=== PATIENT | female | born 1935 | race Caucasian/White ===

== ENCOUNTER → 2018-07-26 | Outpatient (CLI) | payer MEDICARE, BC ==
--- NOTE | 2018-07-26 09:39 | US ---
EXAMINATION TYPE: US abdomen limited DATE OF EXAM: 07/26/2018 COMPARISON: US 2010, CT 2013 CLINICAL HISTORY: R10.9 Abdominal pain,dyspepsia K30. EXAM MEASUREMENTS: Liver Length: 12.7 cm Gallbladder Wall: 0.1 cm CBD: 0.3 cm Right Kidney: 9.8 x 4.5 x 4.0 cm Pancreas: Tail obscured by overlying bowel gas Liver: wnl, Echogenic, shadowing focus near diaphragm as seen on previous CT = 1.2 x 1.1 x 0.6 cm -- correlates with dystrophic calcification. Gallbladder: wnl Evidence for sonographic Jack's sign: No CBD: wnl Right Kidney: wnl IMPRESSION: No shadowing mobile gallstones or ultrasound evidence for acute cholecystitis.
--- NOTE | 2018-07-26 14:26 | XR ---
"EXAMINATION TYPE: XR chest 2V DATE OF EXAM: 07/26/2018 COMPARISON: Prior chest x-ray 04/29/2011 HISTORY: Abdominal pain, dyspepsia TECHNIQUE: Frontal and lateral views of the chest are obtained. FINDINGS: There is no pleural effusion or pneumothorax seen. Biapical pleural thickening is present . There is a focus of increased density between the posterior left seventh and eighth ribs not seen o n prior exam. The cardiac silhouette size is stable, enlarged. The aorta is dense. The osseous struc tures are intact. IMPRESSION: Question nodule in the left mid lung as described. Stable cardiomegaly. Apical pleural t hickening again noted. Consider short interval follow-up, chest CT A Yellow level critical message alert has been initiated for Mari Phan DO via the [employer] 60 | Critical Results System on 07/26/2018 2:24 PM. This message alert has been sent to Mari padilla DO via the preferences provided by the clinician for the receipt of Radiology Critical FindingsHelena Egan essage ID [id number]."
--- NOTE | 2018-07-26 14:32 | XR ---
Thoracic spine HISTORY: Remote history of trauma, irregular heartbeat, abdominal pain and dyspepsia 3 views of the thoracic spine Thoracic vertebral bodies show preserved height and alignment. Bone mineralization is reduced. There is multilevel spondylosis. Disc spaces maintained. Mild spinal curvature is noted. There are calcific ations seen at the level of the right hemidiaphragm which are indeterminate. Degenerative disc change s noted in the cervical spine. IMPRESSION: No fracture or subluxation. Osteopenia. Thoracic spondylosis.
--- NOTE | 2018-07-26 14:35 | XR ---
Lumbar spine HISTORY: Abdominal pain, dyspepsia, irregular heartbeat, history of remote trauma 5 views of the lumbosacral spine Calcification in the left upper quadrant may be related to splenic artery. Lumbar vertebral bodies sh ow preserved alignment. Bone mineralization is reduced. There is no evident spondylolysis. Multilevel spondylosis is present. There is loss of height of superior endplate of L2 partially 25%, no evident retropulsion. Loss of disc height present at intervertebral levels. Sclerosis present in the posteri or elements compatible with facet arthropathy. There are vascular calcifications. IMPRESSION: Probable osteoporotic compression deformity superior endplate L2 indeterminate age, degen erative disc disease and facet arthropathy. Additional findings above.
== END | disposition home or self-care (01) ==
LOC: RADUSWWP 08:57
PROVIDERS: ATTEND Family Medicine
DX: I51.7 Cardiomegaly (principal); R91.8 Other nonspecific abnormal finding of lung field; R10.13 Epigastric pain; M47.814 Spondylosis without myelopathy or radiculopathy, thoracic region; M85.88 Other specified disorders of bone density and structure, other site; M51.36 Other intervertebral disc degeneration, lumbar region; M46.86 Other specified inflammatory spondylopathies, lumbar region
CPT/HCPCS: 71046; 72072; 72110; 76705

== ENCOUNTER → 2018-08-07 | Outpatient (CLI) | payer BC, MEDICARE ==
--- NOTE | 2018-08-07 14:19 | CT ---
EXAMINATION TYPE: CT chest wo/w con DATE OF EXAM: 08/07/2018 COMPARISON: Chest x-ray July 26, 2018 HISTORY: left lung nodule, abnormal chest x-ray. CT DLP: 351.2 mGycm. Automated Exposure Control for Dose Reduction was Utilized. TECHNIQUE: CT scan of the thorax is performed following without and with IV Contrast, patient inject ed with 80mL mL of Isovue 300. FINDINGS: LUNGS: Correlating with area of chest x-ray concern there is nodular opacity or spiculated groundglas s nodule measuring 15 x 8 mm axial image 31 series 4 and image 34 series 8 without suspicious enhance ment only measuring 3 to 4 mm in thickness coronal image 29 series 12. I favor postinflammatory scar. There is additional groundglass opacity with some areas of consolidation in the medial left lower lo be. There is additional just over 6 mm nodule lateral left lung base axial image 47 series 4 and smal ler 6 x 4 mm nodule superior to this lateral left lower lobe axial image 38 series 4. There is modera te biapical pleural/parenchymal scarring extending posteriorly. Dependent atelectasis right lung base is present. No pleural effusion or pneumothorax is seen bilaterally. Tracheobronchial tree is patent . MEDIASTINUM: There are no greater than 1 cm hilar or mediastinal lymph nodes. A few prominent but s ubcentimeter thoracic lymph nodes are seen for reference is 7 x 6 mm prevascular lymph node axial jon ge 30 No pericardial effusion is seen. Heart size is upper limits of normal. There is mild calcified plaque of visualized aorta. OTHER: Small hiatal hernia is present. There is mild to moderate multilevel spurring in the thoracic spine. There is single calcification in the hepatic dome axial image 49. IMPRESSION: Findings as detailed above with left lung nodules measuring up to 6 mm in size and 15 by 8mm scarlike opacity corresponding to area of x-ray abnormality. Favor postinflammatory etiology. Adv ise CT follow-up in 3-6 months time to reassess.
== END | disposition home or self-care (01) ==
LOC: RADCTMAIN 12:24
PROVIDERS: ATTEND Family Medicine
DX: R91.8 Other nonspecific abnormal finding of lung field (principal)
CPT/HCPCS: 82565; 84520; 71270; 36415; Q9967

== ENCOUNTER → 2018-08-28 | Outpatient (CLI) | payer MEDICARE, BC ==
[2018-08-28 16:21] LABS: Iron Saturation 20.96 (12.00-45.00)
[2018-08-28 16:42] LABS: Folate, Serum 9.9 ng/mL
[2018-08-28 21:24] LABS: Hemoglobin A1C 5.7 % (4.0-6.0)
== END ==
LOC: LABWHC1 08:59
PROVIDERS: ATTEND Family Medicine
DX: E87.1 Hypo-osmolality and hyponatremia (principal); R73.9 Hyperglycemia, unspecified; K90.9 Intestinal malabsorption, unspecified; D53.9 Nutritional anemia, unspecified; E61.1 Iron deficiency
CPT/HCPCS: 36415; 82607; 82728; 82746; 83036; 83540; 83550

== ENCOUNTER 2019-04-25 07:47 | Emergency (ER) | payer MEDICARE, BC ==
[2019-04-25] MEDS ORDERED: PANTOPRAZOLE 40 MG/10 ML VIAL IVP STA (08:15)
[2019-04-25] MEDS ORDERED: SODIUM CHLORIDE 0.9% 1,000 ML IV STA (08:15)
--- NOTE | 2019-04-25 08:19 | ED ---
General Adult HPI - General Chief complaint: GI Bleed Stated complaint: Diarrhea Time Seen by Provider: 04/25/19 07:54 Source: patient Mode of arrival: wheelchair Limitations: no limitations - History of Present Illness Initial comments: Dictation was produced using [employer] dictation software. please excuse any grammatical, word or spelling errors. Chief Complaint: 84-year-old female presents with 2 days of GI bleed and left lower quadrant abdominal pain. History of Present Illness: Patient is 84-year-old female she has past medical history of atrial fibrillation and diverticulitis. She presents with 2-3 days of GI bleed. She states 20 her stool has been red and runny. The day after she's been having black coffee-ground stool. Patient states she has mild discomfort to her left lower quadrant. Patient is remote history of diverticulitis. She states her symptoms are different today. Denies any hematuria or dark urine. Patient has not been eating over the last 2-3 days. Patient denies any nausea vomiting. Denies any constitutional symptoms. Patient denies any rectal pain. Denies any recent hospitalizations. No recent antibiotics. No exposure to people with similar symptoms. No recent camping or traveling. The ROS documented in this emergency department record has been reviewed and confirmed by me. Those systems with pertinent positive or negative responses have been documented in the HPI. All other systems are other negative and/or noncontributory. PHYSICAL EXAM: General Impression: Alert and oriented x3, not in acute distress HEENT: Normocephalic atraumatic, extra-ocular movements intact, pupils equal and reactive to light bilaterally, mucous membranes moist. Cardiovascular: Heart regular rate and rhythm, S1&S2 audible, no murmurs, rubs or gallops Chest: Lungs clear to auscultation bilaterally, no rhonchi, no wheeze, no rales Abdomen: Tenderness to palpation of left lower quadrant Musculoskeletal: Pulses present and equal in all extremities, no peripheral edema Motor: no focal deficits noted Neurological: CN II-XII grossly intact, no focal motor or sensory deficits noted Skin: Intact with no visualized rashes Psych: Normal affect and mood Rectal exam: Shows 2 anal polyps at the 4 and 7 o'clock position. No palpable mass in the rectal vault ED course: 84-year-old female presents with GI bleed and left lower quadrant abdominal pain for the last 2 days. Upon arrival are within acceptable limits. Laboratory evaluation obtained. CBC, coag panel, metabolic panel was obtained. Patient has mild non-gap acidosis likely secondary to fluid water loss. Patient still of blood is negative. CT abdomen and pelvis with contrast was obtained. There is findings of mild acute diverticulitis at the left lower quadrant. No acute processes seen. No free air or peritoneal air, no signs of abscess. Patient tolerating by mouth at bedside. Patient given 1 dose of Levaquin, Flagyl loperamide. Patient given prescriptions for these medications. She is advised to follow-up with PCP. Return parameters discussed patient patient understands that she should return to the emergency department with worsening pain, constitutional symptoms or by mouth intolerance. Patient otherwise clear for discharge. She is understandable and agreeable to disposition. - Related Data Home Medications Medication Instructions Recorded Confirmed Cetirizine HCl [Zyrtec] 10 mg PO DAILY PRN 04/25/19 04/25/19 Cholecalciferol [Vitamin D3 (25 1,000 unit PO DAILY 04/25/19 04/25/19 Mcg = 1000 Iu)] Clopidogrel [Plavix] 37.5 mg PO Q48H 04/25/19 04/25/19 Cyanocobalamin (Vitamin B-12) 1,000 mcg PO DAILY 04/25/19 04/25/19 [Vitamin B-12] Pseudoephedrine [Sudafed] 30 mg PO Q4H PRN 04/25/19 04/25/19 amLODIPine [Norvasc] 5 mg PO DAILY 04/25/19 04/25/19 Previous Rx's Medication Instructions Recorded Levofloxacin [Levaquin] 750 mg PO DAILY 9 Days #9 tab 04/25/19 Loperamide HCl [Loperamide] 2 mg PO QID PRN #24 capsule 04/25/19 metroNIDAZOLE [Flagyl] 500 mg PO TID #30 tab 04/25/19 Allergies Allergy/AdvReac Type Severity Reaction Status Date / Time Penicillins Allergy Unknown Verified 04/25/19 08:16 Review of Systems ROS Statement: Those systems with pertinent positive or pertinent negative responses have been documented in the HPI. ROS Other: All systems not noted in ROS Statement are negative. Past Medical History Past Medical History: Atrial Fibrillation Additional Past Medical History / Comment(s): diverticulitis History of Any Multi-Drug Resistant Organisms: None Reported Past Psychological History: No Psychological Hx Reported Smoking Status: Never smoker Past Alcohol Use History: None Reported Past Drug Use History: None Reported General Exam Limitations: no limitations Course Vital Signs 04/25/19 04/25/19 07:49 09:17 Temperature 98.1 F Pulse Rate 70 105 H Respiratory 18 16 Rate Blood Pressure 108/67 110/77 O2 Sat by Pulse 100 99 Oximetry Medical Decision Making - Lab Data Result diagrams: 04/25/19 08:46 04/25/19 08:46 Lab Results 04/25/19 04/25/19 04/25/19 Range/Units 08:46 08:46 08:46 WBC 8.2 (3.8-10.6) k/uL RBC 4.78 (3.80-5.40) m/uL Hgb 13.9 (11.4-16.0) gm/dL Hct 42.1 (34.0-46.0) % MCV 88.1 (80.0-100.0) fL MCH 29.2 (25.0-35.0) pg MCHC 33.1 (31.0-37.0) g/dL RDW 14.6 (11.5-15.5) % Plt Count 205 (150-450) k/uL Neutrophils % 63 % Lymphocytes % 24 % Monocytes % 8 % Eosinophils % 0 % Basophils % 1 % Neutrophils # 5.2 (1.3-7.7) k/uL Lymphocytes # 2.0 (1.0-4.8) k/uL Monocytes # 0.6 (0-1.0) k/uL Eosinophils # 0.0 (0-0.7) k/uL Basophils # 0.1 (0-0.2) k/uL PT (9.0-12.0) sec INR (<1.2) APTT (22.0-30.0) sec Sodium 138 (137-145) mmol/L Potassium 3.9 (3.5-5.1) mmol/L Chloride 106 (98-107) mmol/L Carbon Dioxide 21 L (22-30) mmol/L Anion Gap 11 mmol/L BUN 15 (7-17) mg/dL Creatinine 0.98 (0.52-1.04) mg/dL Est GFR (CKD-EPI)AfAm 61 (>60 ml/min/1.73 sqM) Est GFR (CKD-EPI)NonAf 53 (>60 ml/min/1.73 sqM) Glucose 105 H (74-99) mg/dL Calcium 8.9 (8.4-10.2) mg/dL Total Bilirubin 0.7 (0.2-1.3) mg/dL AST 23 (14-36) U/L ALT 7 L (9-52) U/L Alkaline Phosphatase 82 (38-126) U/L Troponin I (0.000-0.034) ng/mL Total Protein 6.9 (6.3-8.2) g/dL Albumin 3.9 (3.5-5.0) g/dL Stool Occult Blood Negative (Negative) 04/25/19 04/25/19 Range/Units 08:46 08:46 WBC (3.8-10.6) k/uL RBC (3.80-5.40) m/uL Hgb (11.4-16.0) gm/dL Hct (34.0-46.0) % MCV (80.0-100.0) fL MCH (25.0-35.0) pg MCHC (31.0-37.0) g/dL RDW (11.5-15.5) % Plt Count (150-450) k/uL Neutrophils % % Lymphocytes % % Monocytes % % Eosinophils % % Basophils % % Neutrophils # (1.3-7.7) k/uL Lymphocytes # (1.0-4.8) k/uL Monocytes # (0-1.0) k/uL Eosinophils # (0-0.7) k/uL Basophils # (0-0.2) k/uL PT 11.6 (9.0-12.0) sec INR 1.1 (<1.2) APTT 25.3 (22.0-30.0) sec Sodium (137-145) mmol/L Potassium (3.5-5.1) mmol/L Chloride (98-107) mmol/L Carbon Dioxide (22-30) mmol/L Anion Gap mmol/L BUN (7-17) mg/dL Creatinine (0.52-1.04) mg/dL Est GFR (CKD-EPI)AfAm (>60 ml/min/1.73 sqM) Est GFR (CKD-EPI)NonAf (>60 ml/min/1.73 sqM) Glucose (74-99) mg/dL Calcium (8.4-10.2) mg/dL Total Bilirubin (0.2-1.3) mg/dL AST (14-36) U/L ALT (9-52) U/L Alkaline Phosphatase (38-126) U/L Troponin I <0.012 (0.000-0.034) ng/mL Total Protein (6.3-8.2) g/dL Albumin (3.5-5.0) g/dL Stool Occult Blood (Negative) Disposition Clinical Impression: Diverticulitis Disposition: HOME SELF-CARE Condition: Good Instructions (If sedation given, give patient instructions): Diverticulitis (ED), Diverticulitis Diet (ED) Prescriptions: metroNIDAZOLE [Flagyl] 500 mg PO TID #30 tab Levofloxacin [Levaquin] 750 mg PO DAILY 9 Days #9 tab Loperamide HCl [Loperamide] 2 mg PO QID PRN #24 capsule PRN Reason: Diarrhea Is patient prescribed a controlled substance at d/c from ED?: No Referrals: Mari Phan DO [Primary Care Provider] - 1-2 days Time of Disposition: 11:21
[2019-04-25 09:07] LABS: Basophils # (A) 0.1 k/uL (0-0.2); Basophils % (A) 1 %; Eosinophils % (A) 0 %; HCT 42.1 % (34.0-46.0); HGB 13.9 gm/dL (11.4-16.0); Lymphocytes % (A) 24 %; MCH 29.2 pg (25.0-35.0); MCHC 33.1 g/dL (31.0-37.0); MCV 88.1 fL (80.0-100.0); Mean Platelet Volume 8.1; Monocytes # (A) 0.6 k/uL (0-1.0); Monocytes % (A) 8 %; Neutrophils # (A) 5.2 k/uL (1.3-7.7); Neutrophils % (A) 63 %; Platelet Count 205 k/uL (150-450); RBC 4.78 m/uL (3.80-5.40); RDW 14.6 % (11.5-15.5); WBC 8.2 k/uL (3.8-10.6)
[2019-04-25 09:20] LABS: Albumin 3.9 g/dL (3.5-5.0); Calcium 8.9 mg/dL (8.4-10.2); Potassium 3.9 mmol/L (3.5-5.1); Total Bilirubin 0.7 mg/dL (0.2-1.3); Total Protein 6.9 g/dL (6.3-8.2)
[2019-04-25 09:29] LABS: INR 1.1 (<1.2); Partial Thromboplastin Time 25.3 sec (22.0-30.0); Prothrombin Time 11.6 sec (9.0-12.0)
--- NOTE | 2019-04-25 10:11 | CT ---
EXAMINATION TYPE: CT abdomen pelvis w con DATE OF EXAM: 04/25/2019 HISTORY: Diarrhea CT DLP: 620.6mGycm Automated Exposure Control for Dose Reduction was Utilized. CONTRAST: CT scan of the abdomen and pelvis is performed without oral but with IV Contrast, patient injected wi th 80 mL of Isovue 300. COMPARISON: CT abdomen April 16, 2014 FINDINGS: LUNG BASES: Some dependent atelectasis in both bases. Additional linear scarring and/or atelectasis c entrally in the left lung base. LIVER/GB: Gallbladder has distended margins without intraluminal CT dense gallstones or surrounding i nflammatory change. PANCREAS: No significant abnormality is seen. SPLEEN: No significant abnormality is seen. ADRENALS: No significant abnormality is seen. KIDNEYS: No significant abnormality is seen. BOWEL: Small hiatal hernia is now present. Evaluation bowel suboptimal secondary to lack of enteric c ontrast. Stomach is poorly distended and thus suboptimally evaluated. There is no suspicious small or large bowel dilatation. There are diverticula throughout the colon most prominent in the sigmoid col on. There is mild inflammatory change with trace fluid left infracolic gutter. UTERUS/ADNEXA: Uterus is surgically absent or markedly atrophic. Scattered pelvic phleboliths are pre sent LYMPH NODES: No greater than 1cm abdominal or pelvic lymph nodes are appreciated. OSSEOUS STRUCTURES: Mild to moderate multilevel spurring in the lumbar spine is present. There is fac et arthropathy in the lower lumbar levels. There is moderate narrowing and spurring in both hip joint s.. OTHER: Mild calcified plaque of aorta extends into branch vessels. IMPRESSION: Perhaps mild acute diverticulitis left lower quadrant near junction of sigmoid and left c olon. Diffuse colonic diverticulosis is present. No bowel obstruction. Correlate clinically.
[2019-04-25] MEDS ORDERED: metroNIDAZOLE 500 MG TAB PO STA (11:16)
[2019-04-25] MEDS ORDERED: LEVOFLOXACIN 750 MG TAB PO STA (11:16)
[2019-04-25] MEDS ORDERED: LOPERAMIDE 2 MG CAP PO STA (11:16)
[2019-04-25 11:45] VITALS: BP 119/72; PULSE 77; RESP 18; TEMP 98
== END 2019-04-25 11:40 | disposition home or self-care (01) ==
LOC: EC 07:47
DX: K57.92 Diverticulitis of intestine, part unspecified, without perforation or abscess without bleeding (principal); I48.91 Unspecified atrial fibrillation; Z79.01 Long term (current) use of anticoagulants; Z79.899 Other long term (current) drug therapy; Z88.0 Allergy status to penicillin
CPT/HCPCS: 36415; 74177; 80053; 82272; 84484; 85025; 85610; 85730; 96361; 96374; 99284

== ENCOUNTER 2022-03-27 13:32 | Emergency (ER) | payer MEDICARE, BC ==
[2022-03-27] MEDS ORDERED: SODIUM CHLORIDE 0.9% 500 ML 500 ML IV STA (13:40)
[2022-03-27 13:45] VITALS: TEMP 98
--- NOTE | 2022-03-27 13:56 | ED ---
General Adult HPI - General Stated complaint: Syncope Time Seen by Provider: 03/27/22 13:32 Source: patient, RN notes reviewed, old records reviewed - History of Present Illness Initial comments: This is an 86-year-old female presents emergency department after having a near syncopal episode. Patient was in judaism preaching she walked out to her car were was hot and had a sweater on started getting lightheaded and felt like she was going to go down and was too weak to stand someone helped her to the ground. Patient states she was a little hot and felt somewhat short of breath at that time. Patient denies any shortness breath currently. Patient denies any chest pain or palpitations. Patient does have a history of atrial fibrillation. Patient denies any abdominal pain. Patient denies any nausea or vomiting. Patient states she has chronic diarrhea that has not changed. Patient states she did not have her normal one piece of toast this morning but did drink a cup of coffee like she always does. Patient denies any headache patient denies any numbness weakness. Patient denies any recent dysuria hematuria urinary frequency. - Related Data Home Medications Medication Instructions Recorded Confirmed Cetirizine HCl [Zyrtec] 10 mg PO DAILY PRN 04/25/19 05/11/19 Cholecalciferol [Vitamin D3 (25 1,000 unit PO DAILY 04/25/19 05/11/19 Mcg = 1000 Iu)] Cyanocobalamin (Vitamin B-12) 1,000 mcg PO DAILY 04/25/19 05/11/19 [Vitamin B-12] amLODIPine [Norvasc] 5 mg PO DAILY 04/25/19 05/11/19 Metoprolol Tartrate [Lopressor] 50 mg PO DAILY 05/11/19 05/11/19 Previous Rx's Medication Instructions Recorded Apixaban [Eliquis] 2.5 mg PO BID #60 tab 05/13/19 Aspirin EC [Ecotrin Low Dose] 81 mg PO DAILY #30 tablet. 05/13/19 Atorvastatin [Lipitor] 10 mg PO DAILY #30 tab 05/13/19 Allergies Allergy/AdvReac Type Severity Reaction Status Date / Time codeine Allergy Unknown Verified 03/27/22 13:45 levofloxacin [From Levaquin] Allergy Unknown Verified 03/27/22 13:45 Penicillins Allergy Unknown Verified 03/27/22 13:45 Review of Systems ROS Statement: Those systems with pertinent positive or pertinent negative responses have been documented in the HPI. ROS Other: All systems not noted in ROS Statement are negative. Past Medical History Past Medical History: Atrial Fibrillation Additional Past Medical History / Comment(s): diverticulitis History of Any Multi-Drug Resistant Organisms: None Reported Past Surgical History: Appendectomy, Hysterectomy Additional Past Surgical History / Comment(s): Ovarian Cyst, Crushed ankle Past Anesthesia/Blood Transfusion Reactions: No Reported Reaction Past Psychological History: No Psychological Hx Reported Past Alcohol Use History: None Reported Past Drug Use History: None Reported General Exam - General Exam Comments Initial Comments: GENERAL: Patient is well-developed and well-nourished. Patient is nontoxic and well- hydrated and is in mild distress. ENT: Neck is soft and supple. No significant lymphadenopathy is noted. Oropharynx is clear. Moist mucous membranes. Neck has full range of motion without eliciting any pain. EYES: The sclera were anicteric and conjunctiva were pink and moist. Extraocular movements were intact and pupils were equal round and reactive to light. Eyelids were unremarkable. PULMONARY: Unlabored respirations. Good breath sounds bilaterally. No audible rales rhonchi or wheezing was noted. CARDIOVASCULAR: There is a regular rate and rhythm without any murmurs gallops or rubs. ABDOMEN: Soft and nontender with normal bowel sounds. SKIN: Skin is clear with no lesions or rashes and otherwise unremarkable. NEUROLOGIC: Patient is alert and oriented x3. Cranial nerves II through XII are grossly intact. Motor and sensory are also intact. Normal speech, volume and content. Symmetrical smile. MUSCULOSKELETAL: Normal extremities with adequate strength and full range of motion. LYMPHATICS: No significant lymphadenopathy is noted PSYCHIATRIC: Normal psychiatric evaluation. Course Vital Signs 03/27/22 03/27/22 13:37 14:52 Temperature 98 F Pulse Rate 83 Pulse Rate [ 71 Left Standing] Pulse Rate [ 96 Left Supine] Pulse Rate [ 96 Left] Respiratory 18 16 Rate Blood Pressure 126/81 Blood Pressure 131/100 [Left Arm Standing] Blood Pressure 156/94 [Left Arm Supine] O2 Sat by Pulse 100 Oximetry Medical Decision Making - Medical Decision Making EKG showed atrial fibrillation at 86 bpm QRS is 79 QT interval 410 QTC is 453. Patient's EKG shows no ST segment elevation or depression. Patient went to the bathroom did not give us a urine when I went back and she stated she did not want to wait for the urine and she did not want to be admitt ed she wanted to go home. Family was with her and were in agreement taken her home. Patient states she was able to ambulate around the ER felt fine - Lab Data Result diagrams: 03/27/22 13:50 03/27/22 13:50 Lab Results 03/27/22 03/27/22 03/27/22 Range/Units 13:50 13:50 13:50 WBC 8.5 (3.8-10.6) k/uL RBC 4.36 (3.80-5.40) m/uL Hgb 13.5 (11.4-16.0) gm/dL Hct 41.9 (34.0-46.0) % MCV 96.0 (80.0-100.0) fL MCH 30.9 (25.0-35.0) pg MCHC 32.2 (31.0-37.0) g/dL RDW 13.0 (11.5-15.5) % Plt Count 174 (150-450) k/uL MPV 8.9 Neutrophils % 55 % Lymphocytes % 36 % Monocytes % 4 % Eosinophils % 1 % Basophils % 1 % Neutrophils # 4.7 (1.3-7.7) k/uL Lymphocytes # 3.0 (1.0-4.8) k/uL Monocytes # 0.4 (0-1.0) k/uL Eosinophils # 0.1 (0-0.7) k/uL Basophils # 0.1 (0-0.2) k/uL PT 11.3 (9.0-12.0) sec INR 1.1 (<1.2) APTT 22.0 (22.0-30.0) sec Sodium 139 (137-145) mmol/L Potassium 3.2 L (3.5-5.1) mmol/L Chloride 106 (98-107) mmol/L Carbon Dioxide 22 (22-30) mmol/L Anion Gap 11 mmol/L BUN 16 (7-17) mg/dL Creatinine 1.01 (0.52-1.04) mg/dL Est GFR (CKD-EPI)AfAm 58 (>60 ml/min/1.73 sqM) Est GFR (CKD-EPI)NonAf 51 (>60 ml/min/1.73 sqM) Glucose 115 H (74-99) mg/dL Calcium 8.6 (8.4-10.2) mg/dL Magnesium 2.0 (1.6-2.3) mg/dL Total Bilirubin 0.6 (0.2-1.3) mg/dL AST 24 (14-36) U/L ALT 9 (4-34) U/L Alkaline Phosphatase 72 (38-126) U/L Troponin I (0.000-0.034) ng/mL Total Protein 6.6 (6.3-8.2) g/dL Albumin 4.0 (3.5-5.0) g/dL 03/27/22 Range/Units 13:50 WBC (3.8-10.6) k/uL RBC (3.80-5.40) m/uL Hgb (11.4-16.0) gm/dL Hct (34.0-46.0) % MCV (80.0-100.0) fL MCH (25.0-35.0) pg MCHC (31.0-37.0) g/dL RDW (11.5-15.5) % Plt Count (150-450) k/uL MPV Neutrophils % % Lymphocytes % % Monocytes % % Eosinophils % % Basophils % % Neutrophils # (1.3-7.7) k/uL Lymphocytes # (1.0-4.8) k/uL Monocytes # (0-1.0) k/uL Eosinophils # (0-0.7) k/uL Basophils # (0-0.2) k/uL PT (9.0-12.0) sec INR (<1.2) APTT (22.0-30.0) sec Sodium (137-145) mmol/L Potassium (3.5-5.1) mmol/L Chloride (98-107) mmol/L Carbon Dioxide (22-30) mmol/L Anion Gap mmol/L BUN (7-17) mg/dL Creatinine (0.52-1.04) mg/dL Est GFR (CKD-EPI)AfAm (>60 ml/min/1.73 sqM) Est GFR (CKD-EPI)NonAf (>60 ml/min/1.73 sqM) Glucose (74-99) mg/dL Calcium (8.4-10.2) mg/dL Magnesium (1.6-2.3) mg/dL Total Bilirubin (0.2-1.3) mg/dL AST (14-36) U/L ALT (4-34) U/L Alkaline Phosphatase (38-126) U/L Troponin I <0.012 (0.000-0.034) ng/mL Total Protein (6.3-8.2) g/dL Albumin (3.5-5.0) g/dL Disposition Clinical Impression: Near syncope Disposition: HOME SELF-CARE Condition: Good Instructions (If sedation given, give patient instructions): Near Syncope (ED) Additional Instructions: Patient should return to the emergency department for any new or worsening sym ptoms. Is patient prescribed a controlled substance at d/c from ED?: No Referrals: Mari Phan DO [Primary Care Provider] - 1-2 days Time of Disposition: 15:46
[2022-03-27 14:02] LABS: Basophils # (A) 0.1 k/uL (0-0.2); Basophils % (A) 1 %; Eosinophils # (A) 0.1 k/uL (0-0.7); Eosinophils % (A) 1 %; HCT 41.9 % (34.0-46.0); HGB 13.5 gm/dL (11.4-16.0); Lymphocytes % (A) 36 %; MCH 30.9 pg (25.0-35.0); MCHC 32.2 g/dL (31.0-37.0); Mean Platelet Volume 8.9; Monocytes # (A) 0.4 k/uL (0-1.0); Monocytes % (A) 4 %; Neutrophils # (A) 4.7 k/uL (1.3-7.7); Neutrophils % (A) 55 %; Platelet Count 174 k/uL (150-450); RBC 4.36 m/uL (3.80-5.40); WBC 8.5 k/uL (3.8-10.6)
[2022-03-27 14:10] LABS: Calcium 8.6 mg/dL (8.4-10.2); Potassium 3.2 mmol/L (3.5-5.1); Total Bilirubin 0.6 mg/dL (0.2-1.3); Total Protein 6.6 g/dL (6.3-8.2)
[2022-03-27 14:31] LABS: INR 1.1 (<1.2)
[2022-03-27 14:32] LABS: Prothrombin Time 11.3 sec (9.0-12.0)
[2022-03-27] MEDS ORDERED: POTASSIUM CHLORIDE ER 20 MEQ TAB.ER PO STA (14:50)
[2022-03-27 14:53] VITALS: BP 156/94; PULSE 96; RESP 16
--- NOTE | 2022-03-27 15:26 | XR ---
EXAMINATION TYPE: XR chest 2V DATE OF EXAM: 03/27/2022 COMPARISON: 07/26/2018 HISTORY: Chest pain TECHNIQUE: FINDINGS: Heart is normal. Lungs are clear of infiltrate. No heart failure. There is no pleural effus ion. Bony thorax is intact. There is some mild pleural thickening at the lung apices. IMPRESSION: No active cardiopulmonary disease. No change.
== END 2022-03-27 16:15 | disposition home or self-care (01) ==
LOC: EC 13:32
DX: R55 Syncope and collapse (principal); I48.91 Unspecified atrial fibrillation; Z88.0 Allergy status to penicillin; Z88.1 Allergy status to other antibiotic agents; Z88.5 Allergy status to narcotic agent; Z79.899 Other long term (current) drug therapy
CPT/HCPCS: 36415; 71046; 80053; 83735; 84484; 85025; 85610; 85730; 93005; 96360; 99284

== ENCOUNTER 2023-05-10 10:00 | Emergency (ER) | payer MEDICARE, BC ==
[2023-05-10] MEDS ORDERED: LIDOCAINE 5% PATCH TOPICAL STA (10:32)
[2023-05-10] MEDS ORDERED: traMADol 50 MG TAB PO STA (10:34)
--- NOTE | 2023-05-10 11:12 | ED ---
General Adult HPI - General Chief complaint: Back Pain/Injury Stated complaint: fall, back pain Time Seen by Provider: 05/10/23 10:09 Source: patient, RN notes reviewed Mode of arrival: ambulatory Limitations: no limitations - History of Present Illness Initial comments: 88-year-old female presents to the emergency department with chief complaint of low back pain. Patient states that she tripped and fell on Monday. She states that she has been having back pain since then. She states the pain is across her low back without radiation. She states that she has been taking Advil for pain which provides some relief. She states she also has been trying to take Tylenol but it does not help. She states she has had a compression fracture in the past. She reports urinary frequency but reports that she feels the urge to go and cannot make it to the bathroom because of the pain. Denies numbness, tingling. She denies any other injury. Denies loss of consciousness, denies hitting her head. Denies urinary retention, bowel incontinence. Denies fever, chills. - Related Data Home Medications Medication Instructions Recorded Confirmed Cetirizine HCl [Zyrtec] 10 mg PO DAILY PRN 04/25/19 05/11/19 Cholecalciferol [Vitamin D3 (25 1,000 unit PO DAILY 04/25/19 05/11/19 Mcg = 1000 Iu)] Cyanocobalamin (Vitamin B-12) 1,000 mcg PO DAILY 04/25/19 05/11/19 [Vitamin B-12] amLODIPine [Norvasc] 5 mg PO DAILY 04/25/19 05/11/19 Metoprolol Tartrate [Lopressor] 50 mg PO DAILY 05/11/19 05/11/19 Previous Rx's Medication Instructions Recorded Apixaban [Eliquis] 2.5 mg PO BID #60 tab 05/13/19 Aspirin EC [Ecotrin Low Dose] 81 mg PO DAILY #30 tablet. 05/13/19 Atorvastatin [Lipitor] 10 mg PO DAILY #30 tab 05/13/19 Cephalexin [Keflex] 500 mg PO BID #14 cap 05/10/23 traMADol HCl [Ultram] 50 mg PO Q6H PRN #12 tab 05/10/23 Allergies Allergy/AdvReac Type Severity Reaction Status Date / Time codeine Allergy Unknown Verified 05/10/23 10:08 levofloxacin [From Levaquin] Allergy Unknown Verified 05/10/23 10:08 Penicillins Allergy Unknown Verified 05/10/23 10:08 Review of Systems ROS Statement: Those systems with pertinent positive or pertinent negative responses have been documented in the HPI. ROS Other: All systems not noted in ROS Statement are negative. Past Medical History Past Medical History: Atrial Fibrillation Additional Past Medical History / Comment(s): diverticulitis History of Any Multi-Drug Resistant Organisms: None Reported Past Surgical History: Appendectomy, Hysterectomy Additional Past Surgical History / Comment(s): Ovarian Cyst, Crushed ankle Past Anesthesia/Blood Transfusion Reactions: No Reported Reaction Past Psychological History: No Psychological Hx Reported Smoking Status: Never smoker Past Alcohol Use History: None Reported Past Drug Use History: None Reported General Exam Limitations: no limitations General appearance: alert, in no apparent distress Course Vital Signs 05/10/23 05/10/23 10:05 13:37 Temperature 98.3 F 98.1 F Pulse Rate 91 84 Respiratory 20 16 Rate Blood Pressure 149/95 139/79 O2 Sat by Pulse 99 99 Oximetry Medical Decision Making - Medical Decision Making Was pt. sent in by a medical professional or institution (, PA, PLATE PUT IN WORKER, urgent care, hospital, or care home...) When possible be specific @ -[No] Did you speak to anyone other than the patient for history (EMS, parent, family, police, friend...)? What history was obtained from this source @ -[No] Did you review nursing and triage notes (agree or disagree)? Why? @ -[I reviewed and agree with nursing and triage notes] Were old charts reviewed (outside hosp., previous admission, EMS record, old EKG, old radiological studies, urgent care reports/EKG's, care home records)? Report findings @ -[No old charts were reviewed] Differential Diagnosis (chest pain, altered mental status, abdominal pain women, abdominal pain men, vaginal bleeding, weakness, fever, dyspnea, syncope, headache, dizziness, GI bleed, back pain, seizure, CVA, palpatations, mental health, musculoskeletal)? @ -[Differential Back Pain: Strain, zoster, cauda equina syndrome, epidural abscess, vertebral osteomyelitis, discitis, fracture, subluxation, disc herniation, DJD, spinal stenosis, dissection, AAA, pancreatitis, peptic ulcer disease, pyelonephritis, kidney stone, this is not meant to be an all-inclusive list.] EKG interpreted by me (3pts min.). @ -[none] X-rays interpreted by me (1pt min.). @ -[XR lumbar spine showed no acute fracture, L2 wedge deformity likely old] CT interpreted by me (1pt min.). @ -[None done] U/S interpreted by me (1pt. min.). @ -[None done] What testing was considered but not performed or refused? (CT, X-rays, U/S, labs)? Why? @ -[None] What meds were considered but not given or refused? Why? @ -[None] Did you discuss the management of the patient with other professionals (professionals i.e. , PA, PLATE PUT IN WORKER, lab, RT, psych nurse, social media project manager, staple laster, teacher, community development officer, residential case manager)? Give summary @ -[No] Was smoking cessation discussed for >3mins.? @ -[No] Was critical care preformed (if so, how long)? @ -[No] Were there social determinants of health that impacted care today? How? (Homelessness, low income, unemployed, alcoholism, drug addiction, transportation, low edu. Level, literacy, decrease access to med. care, fpc, rehab)? @ -[No] Was there de-escalation of care discussed even if they declined (Discuss DNR or withdrawal of care, Hospice)? DNR status @ -[No] What co-morbidities impacted this encounter? (DM, HTN, Smoking, COPD, CAD, Cancer, CVA, ARF, Chemo, Hep., AIDS, mental health diagnosis, sleep apnea, morbid obesity)? @ -[None] Was patient admitted / discharged? Hospital course, mention meds given and route, prescriptions, significant lab abnormalities, going to OR and other pertinent info. @ -[Discharged. Patient presented to emergency department chief complaint of low back pain following a fall that occurred on Monday. Patient was given a lidocaine patch and tramadol which she states helped her pain. She reports urinary frequency. post void bladder scan performed which showed no retained urine. XR lumbar spine showed no acute fracture. Prescription sent to patients pharmacy for UTI treatment as patient has 15 WBC, leukocyte esterase with urinary symptoms. Patient also given prescription for short term tramadol. Patient discharged in stable condition. Case discussed with my attending, Dr. Troy] Undiagnosed new problem with uncertain prognosis? @ -[No] Drug Therapy requiring intensive monitoring for toxicity (Heparin, Nitro, Insulin, Cardizem)? @ -[No] Were any procedures done? @ -[No] Diagnosis/symptom? @ -[mechanical back pain] Acute, or Chronic, or Acute on Chronic? @ -[acute] Uncomplicated (without systemic symptoms) or Complicated (systemic symptoms)? @ -[uncomplicated] Side effects of treatment? @ -[No] Exacerbation, Progression, or Severe Exacerbation? @ -[No] Poses a threat to life or bodily function? How? (Chest pain, [place], MA, pneumonia, PE, COPD, DKA, ARF, appy, cholecystitis, CVA, Diverticulitis, Homicidal, Suicidal, threat to staff... and all critical care pts) @ -[No] - Lab Data Lab Results 05/10/23 Range/Units 10:49 Urine Color Light Yellow Urine Appearance Clear (Clear) Urine pH 6.5 (5.0-8.0) Ur Specific [place] 1.005 (1.001-1.035) Urine Protein Negative (Negative) Urine Glucose (UA) Negative (Negative) Urine Ketones Negative (Negative) Urine Blood Trace H (Negative) Urine Nitrite Negative (Negative) Urine Bilirubin Negative (Negative) Urine Urobilinogen <2.0 (<2.0) mg/dL Ur Leukocyte Esterase Large H (Negative) Urine RBC 6 H (0-5) /hpf Urine WBC 15 H (0-5) /hpf Ur Squamous Epith Cells 4 (0-4) /hpf Urine Mucus Rare H (None) /hpf Disposition Clinical Impression: Mechanical back pain Disposition: HOME SELF-CARE Condition: Stable Instructions (If sedation given, give patient instructions): Acute Low Back Pain (ED) Prescriptions: Cephalexin [Keflex] 500 mg PO BID #14 cap traMADol HCl [Ultram] 50 mg PO Q6H PRN #12 tab PRN Reason: Pain Is patient prescribed a controlled substance at d/c from ED?: No Referrals: None,Stated [REFERRING] - 1-2 days
--- NOTE | 2023-05-10 11:27 | XR ---
EXAMINATION TYPE: XR lumbar spine 2 or 3V DATE OF EXAM: 05/10/2023 CLINICAL HISTORY: Fall, pain TECHNIQUE: Three views of the lumbar spine are submitted. COMPARISON: Lumbosacral spine radiograph 07/26/2018 FINDINGS: There are 5 lumbar type vertebral bodies identified. The lumbar spine shows satisfactory alignment w ithout evidence of acute fracture or dislocation. Similar anterior wedge deformity of the L2 vertebra l body with approximately 25% height loss. The remaining body heights are within normal limits. Mul tilevel disc space narrowing with endplate sclerosis and anterior osteophytosis. Multilevel facet ar thropathy. The overlying soft tissue appears unremarkable. IMPRESSION: 1. No acute fracture or dislocation is seen in the lumbar spine. 2. Similar remote L2 anterior wedge compression deformity. 3. Moderate multilevel degenerative disc disease.
[2023-05-10 12:44] LABS: Appearance,Urine Clear (Clear); Bilirubin,Urine Negative (Negative); Blood,Urine Trace (Negative); Color,Urine Light Yellow; Glucose,Urine (UA) Negative (Negative); Ketones,Urine Negative (Negative); Leukocyte Esterase,Urine Large (Negative); Mucus,Urine Rare /hpf; Nitrite,Urine Negative (Negative); PH, Urine 6.5 (5.0-8.0); Protein,Urine Negative (Negative); RBC,Urine 6 /hpf (0-5); Specific Gravity,Urine 1.005 (1.001-1.035); Squamous Epithelial Cell,Urine 4 /hpf (0-4); Urobilinogen,Urine <2.0 mg/dL (<2.0); WBC,Urine 15 /hpf (0-5)
[2023-05-10 13:39] VITALS: BP 139/79; PULSE 84; RESP 16; TEMP 98.1
== END 2023-05-10 13:39 | disposition home or self-care (01) ==
LOC: EC 10:00
DX: M54.50 Low back pain, unspecified (principal); Z88.0 Allergy status to penicillin; Z88.1 Allergy status to other antibiotic agents; Z88.5 Allergy status to narcotic agent; W01.0XXA Fall on same level from slipping, tripping and stumbling without subsequent striking against object, initial encounter
CPT/HCPCS: 72100; 81001; 87086; 99284

== ENCOUNTER → 2023-06-05 | Outpatient (CLI) | payer MEDICARE, BC ==
[2023-06-05 11:26] LABS: HCT 42.9 % (37.2-46.3); HGB 13.9 d/dL (12.0-15.0); MCH 30.5 pg (27.0-32.0); MCHC 32.4 d/dL (32.0-37.0); MCV 94.3 FL (80.0-97.0); Mean Platelet Volume 11.3 FL (9.5-12.2); NRBC Per 100 WBC 0 X 10*3/uL (0.00-0.01); Platelet Count 232 X 10*3/uL (140-440); RBC 4.55 X 10*6/uL (4.10-5.20); RDW 13.1 % (11.5-14.5); WBC 9.14 X 10*3/uL (4.50-10.00)
[2023-06-05 11:37] LABS: BUN/Creat Ratio 15.22 Ratio (12.00-20.00); Blood Urea Nitrogen 13.7 mg/dL (9.0-27.0); Calcium 9.7 mg/dL (8.7-10.3); Carbon Dioxide 25.7 mmol/L (21.6-31.8); Chloride 103 mmol/L (96-109); Chol/HDL Ratio 2.89 Ratio; Glucose 100 mg/dL (70-110); LDL Cholesterol,Calculated 90.9 mg/dL (0.0-131.0); Potassium 3.7 mmol/L (3.5-5.5); Sodium 141 mmol/L (135-145); VLDL Calculation 15.74 mg/dL (5.00-40.00)
[2023-06-05 11:38] LABS: ALT 8 U/L (8-44); AST 17 U/L (13-35)
== END | disposition home or self-care (01) ==
LOC: LABWHC1 07:37
PROVIDERS: ATTEND Internal Medicine Cardiovascular Disease
DX: I48.19 Other persistent atrial fibrillation (principal); R06.02 Shortness of breath; E78.2 Mixed hyperlipidemia
CPT/HCPCS: 36415; 80048; 80061; 84443; 84450; 84460; 85027